=== PATIENT | male | born 1995 | race Two or more races ===

== ENCOUNTER 2017-06-16 16:56 | Emergency (ER) | payer OTHER ==
[2017-06-16 17:23] VITALS: BMI 27.4
[2017-06-16] MEDS ORDERED: KETOROLAC TROMETHAMINE 30 MG/1 ML VIAL IM ONE (17:29)
[2017-06-16] MEDS ORDERED: diazePAM 5 MG TABLET PO ONE (17:30)
[2017-06-16] MEDS ORDERED: diazePAM 5 MG TABLET ONE (17:32)
[2017-06-16] MEDS ORDERED: KETOROLAC TROMETHAMINE 30 MG/1 ML VIAL ONE (17:32)
--- NOTE | 2017-06-16 17:36 | PDOC ---
History of Present Illness <Kae Martinez - Last Filed: 06/16/17 17:30> - General History Source: Patient Exam Limitations: No Limitations - History of Present Illness Initial Comments: 06/16/17 17:40 The patient is a 21 year old male, with no significant past medical history who presents to the emergency department with left lower back pain for a couple of weeks. The patient notes his back pain is often worse with movement, weight bearing activities, and while lying down. He notes occasionally his pain shoots down his leg. He notes today his lower back pain was significantly worse. He denies an hx of kidney stones. He denies any recent fevers, chills, headache or dizziness. He denies any recent nausea, vomit, diarrhea or constipation. He denies any recent chest pain or shortness of breath. He denies any recent dysuria, frequency, urgency or hematuria. Allergies: NKA Past surgical history: None reported. Social History: Nonsmoker. Denies EtOH use and recreational drug use. <Benny Adorno - Last Filed: 06/16/17 17:41> - General Chief Complaint: Pain, Acute Stated Complaint: BACK PAIN Past History - Suicide/Smoking/Psychosocial Hx Smoking History: Current every day smoker Have you smoked in the past 12 months: No Information on smoking cessation initiated: No Hx Alcohol Use: No Drug/Substance Use Hx: Yes <Kae Martinez - Last Filed: 06/16/17 17:30> <Benny Adorno - Last Filed: 06/16/17 17:41> - Past Medical History Allergies/Adverse Reactions: Allergies Allergy/AdvReac Type Severity Reaction Status Date / Time No Known Allergies Allergy Verified 06/16/17 17:31 Home Medications: Ambulatory Orders Diazepam [Valium] 5 mg PO Q8H PRN #10 tablet MDD 3 06/16/17 Ibuprofen [Motrin -] 600 mg PO TID #90 tablet 06/16/17 Review of Systems - Review of Systems Able to Perform ROS?: Yes Comments:: 06/16/17 17:40 GENERAL/CONSTITUTIONAL: No fever or chills. No weakness. HEAD, EYES, EARS, NOSE AND THROAT: No change in vision. No ear pain or discharge. No sore throat. CARDIOVASCULAR: No chest pain or shortness of breath. RESPIRATORY: No cough, wheezing, or hemoptysis. GASTROINTESTINAL: No nausea, vomiting, diarrhea or constipation. GENITOURINARY: No dysuria, frequency, or change in urination. MUSCULOSKELETAL: +low back pain. No joint or muscle swelling or pain. No neck pain. SKIN: No rash NEUROLOGIC: No headache, vertigo, loss of consciousness, or change in strength/ sensation. ENDOCRINE: No increased thirst. No abnormal weight change. HEMATOLOGIC/LYMPHATIC: No anemia, easy bleeding, or history of blood clots. ALLERGIC/IMMUNOLOGIC: No hives or skin allergy. <Benny Adorno - Last Filed: 06/16/17 17:41> *Physical Exam - Vital Signs Last Vital Signs Temp Pulse Resp BP Pulse Ox 98.4 F 76 20 144/75 100 06/16/17 17:15 06/16/17 17:15 06/16/17 17:15 06/16/17 17:15 06/16/17 17:15 <Kae Martinez - Last Filed: 06/16/17 17:30> - Vital Signs Last Vital Signs Temp Pulse Resp BP Pulse Ox 98.4 F 89 20 144/75 100 06/16/17 17:15 06/16/17 17:37 06/16/17 17:15 06/16/17 17:15 06/16/17 17:37 - Physical Exam Comments: 06/16/17 17:40 GENERAL: Awake, alert, and fully oriented, in no acute distress HEAD: No signs of trauma EYES: PERRLA, EOMI, sclera anicteric, conjunctiva clear ENT: Auricles normal inspection, hearing grossly normal, nares patent, Moist mucosa NECK: Normal ROM, supple, JVD, or masses LUNGS: Breath sounds equal, clear to auscultation bilaterally. No wheezes, and no crackles HEART: Regular rate and rhythm, normal S1 and S2, no murmurs, rubs or gallops ABDOMEN: Soft, nontender, normoactive bowel sounds. No guarding, no rebound. No masses EXTREMITIES: Normal range of motion, no edema. No clubbing or cyanosis. No cords, erythema, or tenderness. 2+DP/PT pulses. 5/5 strength of LEs and sensation intact for both LEs. NEUROLOGICAL: Normal speech, normal gait, moves all extremities equally. Speech clear. SKIN: Warm, Dry, normal turgor, no rashes or lesions noted. <Benny Adorno - Last Filed: 06/16/17 17:41> ED Treatment Course - Medications Given in the ED: ED Medications Discontinued Medications Generic Name Dose Route Start Last Admin Trade Name Sang PRN Reason Stop Dose Admin Diazepam 5 mg 06/16/17 17:30 06/16/17 17:31 Valium - PO 06/16/17 17:31 5 mg ONCE ONE Administration Ketorolac Tromethamine 30 mg 06/16/17 17:29 06/16/17 17:31 Toradol Injection - IM 06/16/17 17:30 30 mg ONCE ONE Administration <Benny Adorno - Last Filed: 06/16/17 17:41> Medical Decision Making - Medical Decision Making 06/16/17 17:30 21-year-old male no prior past medical history here today complaining of low back pain. Patient states he has had it for several days. But was worse today the point where he couldn't walk as always in the left side. Radiates down to his left anterior thigh. No recent trauma, fevers, chills, denies new weakness or numbness. No urinary complaints. No history of kidney stones. Pain is moderate in severity, worse with bending and stretching. On exam patient is awake alert no acute distress lung exam is normal. Heart is regular without murmurs rubs or gallops. Abdomen is soft nontender. Back has left-sided lumbosacral muscle spasm. No midline tenderness. Lower extremities are 5 out of 5 strength, sensation is intact throughout. Patient has musculoskeletal strain, will treat with NSAIDs and muscle relaxers. He C with PCP follow-up <Kae Martinez - Last Filed: 06/16/17 17:30> *DC/Admit/Observation/Transfer - Discharge Dispostion Admit: No <Kae Martinez - Last Filed: 06/16/17 17:30> - Attestations Scribe Attestion: 06/16/17 17:40 Documentation prepared by Benny Adorno, acting as medical information specialist for Kae Martinez MD. <Benny Adorno - Last Filed: 06/16/17 17:41> Diagnosis at time of Disposition: Low back strain - Discharge Dispostion Disposition: HOME Condition at time of disposition: Improved - Prescriptions Prescriptions: Diazepam [Valium] 5 mg PO Q8H PRN #10 tablet MDD 3 PRN Reason: Pain Ibuprofen [Motrin -] 600 mg PO TID #90 tablet - Referrals Referrals: Annia Jean [Primary Care Provider] - - Patient Instructions Printed Discharge Instructions: Back Pain (Alternative Therapy), DI for Back Strain or Sprain Additional Instructions: He can take ibuprofen 600 mg every 8 hours as needed for pain. Take Valium 5 mg every 8 hours as needed for muscle spasm. Do not drive after taking this medication, were mixed with alcohol as it can make you sleepy. He should follow- up with her primary doctor to discuss outpatient physical therapy. No heavy lifting for one week return for any weakness numbness or any concerns - Post Discharge Activity
[2017-06-16 17:44] VITALS: BP 134/86; PULSE 84; TEMP 98.2
== END 2017-06-16 17:44 | disposition home or self-care (01) ==
LOC: JER 16:56
PROC: 3E0233Z Introduction of Anti-inflammatory into Muscle, Percutaneous Approach (ICD-10-PCS; principal; 2017-06-16)
DX: S39.012A Strain of muscle, fascia and tendon of lower back, initial encounter (principal); X58.XXXA Exposure to other specified factors, initial encounter; Y93.89 Activity, other specified; Y92.89 Other specified places as the place of occurrence of the external cause; Y99.8 Other external cause status
CPT/HCPCS: 99282-25

== ENCOUNTER 2023-08-05 10:22 | Emergency (ER) | payer OTHER ==
[2023-08-05 10:29] VITALS: BP 128/74; PULSE 78; RESP 17; TEMP 98.2; BMI 31.3
[2023-08-05] MEDS ORDERED: LIDOCAINE 5% TOPICAL PATCH TP ONE (11:20)
[2023-08-05] MEDS ORDERED: CYCLOBENZAPRINE HCL 10 MG TABLET (FP) PO ONE (11:20)
[2023-08-05] MEDS ORDERED: KETOROLAC TROMETHAMINE 30 MG/1 ML VIAL IM ONE (11:20)
[2023-08-05] MEDS ORDERED: CYCLOBENZAPRINE HCL 10 MG TABLET (FP) ONE (11:38)
[2023-08-05] MEDS ORDERED: KETOROLAC TROMETHAMINE 30 MG/1 ML VIAL ONE (11:38)
[2023-08-05] MEDS ORDERED: LIDOCAINE 4% PATCH TP ONE (11:38)
[2023-08-05] MEDS ORDERED: LIDOCAINE PATCH REMOVAL MC SCH (22:00)
== END 2023-08-05 12:36 | disposition home or self-care (01) ==
LOC: JERFT 10:22
PROC: 3E0233Z Introduction of Anti-inflammatory into Muscle, Percutaneous Approach (ICD-10-PCS; principal; 2023-08-05)
DX: M54.50 Low back pain, unspecified (principal)
CPT/HCPCS: 72100-TC-FY; 99284-25